=== PATIENT | female | born 1935 | race Caucasian/White ===

== ENCOUNTER 2019-06-20 15:21 | Emergency (ER) | payer MEDICARE, OTHER ==
[~2019-06-20] VITALS: Ht 152.4 cm; Wt 62.1 kg
[2019-06-20] MEDS ORDERED: TYLENOL EXTRA500 MG PO (15:39)
[2019-06-20] MEDS ORDERED: PACERONE 200 M200 M1 PO (15:40)
[2019-06-20] MEDS ORDERED: COREG6.25 MG PO (15:40)
[2019-06-20] MEDS ORDERED: VOLTAREN GEL 1100 G2 TOP (15:41)
[2019-06-20] MEDS ORDERED: NITROGLYCERIN0.4 MG SUBLING (15:41)
[2019-06-20] MEDS ORDERED: LASIX 20 MG TAB20 MG PO (15:41)
[2019-06-20] MEDS ORDERED: XARELTO20 MG PO (15:42)
[2019-06-20] MEDS ORDERED: ENTRESTO 24 MG1 EACH PO (15:42)
[2019-06-20] MEDS ORDERED: SPIRONOLACTONE25 MG PO (15:42)
[2019-06-20] MEDS ORDERED: PRAVACHOL20 MG PO (15:42)
[2019-06-20 15:48] LABS: HEMATOCRIT 40.9 % (37.0-47.0); HEMOGLOBIN 13.9 gm/dL (12.0-15.0); MCH 30.7 pg (26.0-34.0); MCHC 33.9 g/dL (28.0-37.0); MCV 90.4 fL (80.0-100.0); MPV 9.7 fl. (7.2-11.1); NUCLEATED RBCS 0 /100WBC; PLATELET COUNT* 178 thou/uL (150-400); RBC 4.52 mil/uL (4.20-5.00); WBC 5.4 thou/uL (4.0-11.0)
[2019-06-20 15:58] LABS: ANION GAP 12 mmol/L (7-16); BUN 28 mg/dL (7-18); CHLORIDE 94 mmol/L (98-107); CO2 25 mmol/L (21-32); CREATININE 1.7 mg/dL (0.6-1.3); GLUCOSE 117 mg/dL (70-99); POTASSIUM 3.5 mmol/L (3.5-5.1); SODIUM 131 mmol/L (136-145)
[2019-06-20 16:16] LABS: ALBUMIN 3.4 g/dL (3.4-5.0); ALKALINE PHOSPHATASE 85 U/L (46-116); NT-PRO BRAIN NAT PEPTIDE 1544 pg/mL (<300); SGOT 103 U/L (15-37); SGPT 92 U/L (30-65); TOTAL BILIRUBIN 0.6 mg/dL (<0.1-1.0); TOTAL PROTEIN 7.1 g/dL (6.4-8.2); TROPONIN-I LEVEL <0.06 ng/mL (<0.06)
[2019-06-20 16:36] LABS: ABSOLUTE EOSINOPHILS 0.1 thou/uL (0.0-0.7); ABSOLUTE LYMPHOCYTES 0.5 thou/uL (0.8-5.3); ABSOLUTE MONOCYTES 1.1 thou/uL (0.0-1.2); ABSOLUTE NEUTROPHILS 3.7 thou/uL (1.6-8.1); ANISOCYTOSIS 1+; PLATELET ESTIMATE ADEQUATE
[2019-06-20 20:32] VITALS: BP 114/81
--- NOTE | 2019-06-21 11:06 | EKG ---
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 06/21/19 1106 D: [id number] David Yo MD, FACC /EPI
== END 2019-06-20 20:32 | disposition short-term general hospital (02) ==
LOC: M.ERS 15:21
PROVIDERS: Emergency Medicine Emergency Medical Services
DX: T82.118A Breakdown (mechanical) of other cardiac electronic device, initial encounter (principal); I10 Essential (primary) hypertension; Z91.048 Other nonmedicinal substance allergy status; Z91.041 Radiographic dye allergy status; Y83.9 Surgical procedure, unspecified as the cause of abnormal reaction of the patient, or of later complication, without mention of misadventure at the time of the procedure; Y92.89 Other specified places as the place of occurrence of the external cause